=== PATIENT | male | born 2000 | race Caucasian/White ===

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

== ENCOUNTER 2022-10-16 16:35 | Emergency (ER) | payer OTHER ==
[2022-10-16 17:12] VITALS: BP 147/69; PULSE 71; RESP 18; TEMP 98.1; BMI 32.5
[2022-10-16] MEDS ORDERED: MAG HYDROX/AL HYDROX/SIMETH 30 ML UNIT-DOSE CUP PO ONE (18:15)
[2022-10-16] MEDS ORDERED: FAMOTIDINE 10 MG TABLET PO ONE (18:15)
[2022-10-16] MEDS ORDERED: FAMOTIDINE 20 MG TABLET ONE (18:30)
[2022-10-16] MEDS ORDERED: MAG HYDROX/AL HYDROX/SIMETH 30 ML UNIT-DOSE CUP ONE (18:31)
[2022-10-16 19:20] LABS: BASO % 0.7 % (0-2.0); EOS % 1.8 % (0-4.5); HEMATOCRIT 46.1 % (35.4-49); HEMOGLOBIN 15.8 GM/dL (11.7-16.9); LYMPH % 29.4 % (8-40); MCH 30.9 pg (25.7-33.7); MCHC 34.3 g/dl (32.0-35.9); MEAN CELL VOLUME 90.3 fl (80-96); MEAN PLT VOLUME 7.8 fl (7.5-11.1); NEUT % 61.1 % (42.8-82.8); PLATELET COUNT 269 10^3/uL (134-434); RBC 5.11 M/mm3 (4.00-5.60); RDW 13.1 % (11.9-15.9); WHITE BLOOD COUNT 7.4 K/mm3 (4.0-10.0)
[2022-10-16 19:48] LABS: CALCIUM 9.6 mg/dL (8.5-10.1)
[2022-10-16 19:49] LABS: ALBUMIN 4.4 g/dl (3.4-5.0)
[2022-10-16 19:50] LABS: BLOOD UREA NITROGEN 16.5 mg/dL (7-18)
[2022-10-16 19:53] LABS: CREATININE 0.8 mg/dL (0.55-1.3)
[2022-10-16 19:54] LABS: TOT PROT 7.5 g/dl (6.4-8.2)
[2022-10-16 19:59] LABS: BILIRUBIN,TOTAL 0.4 mg/dL (0.2-1)
== END 2022-10-16 21:20 | disposition home or self-care (01) ==
LOC: JER 16:35
DX: K30 Functional dyspepsia (principal)
CPT/HCPCS: 36415; 76705-TC; 80053; 83690; 85025; 99284-25

== ENCOUNTER 2023-11-14 18:04 | Emergency (ER) | payer OTHER ==
[2023-11-14 19:04] VITALS: BP 97/62; RESP 18; BMI 33.9
[2023-11-14] MEDS ORDERED: ACETAMINOPHEN 500 MG TABLET (FP) PO ONE (21:48)
[2023-11-14] MEDS ORDERED: IBUPROFEN 600 MG TABLET (FP) PO ONE ×2 (21:48→21:59)
[2023-11-14] MEDS ORDERED: ACETAMINOPHEN 500 MG TABLET (FP) ONE (21:59)
[2023-11-14 23:18] VITALS: PULSE 119; TEMP 97.4
== END 2023-11-14 23:21 | disposition home or self-care (01) ==
LOC: JERFT 18:04
DX: R05.9 Cough, unspecified (principal); R09.81 Nasal congestion; R50.9 Fever, unspecified; M79.10 Myalgia, unspecified site; J10.1 Influenza due to other identified influenza virus with other respiratory manifestations; Z20.822 Contact with and (suspected) exposure to COVID-19
CPT/HCPCS: 0241U-QW; 99283-25